=== PATIENT | female | born 1930 | race Caucasian/White ===

== ENCOUNTER 2019-09-18 05:41 | Inpatient (IN) ==
[~2019-09-18 05:41] MED LIST: ACETAMINOPHEN 500 MG TABLET PO ONE
[2019-09-18] MEDS ORDERED: ceFAZolin 1,000 MG in SYRINGE 1 EACH IV ONE (06:00)
[2019-09-18] MEDS ORDERED: VANCOMYCIN INJ 1,000 MG in SODIUM CHLORIDE 0.9% 250 ML IV ONE (06:00)
[2019-09-18] MEDS ORDERED: ceFAZolin 1,000 MG VIAL ONE (06:01)
[2019-09-18] MEDS ORDERED: VANCOMYCIN 1,000 MG VIAL ONE (06:01)
[2019-09-18] MEDS ORDERED: SCOPOLAMINE 1.5 MG PATCH TRANSDERM ONE (06:30)
[2019-09-18] MEDS: LACTATED RINGERS 1,000 ML IV SCH ×2 (06:35→08:00)
[2019-09-18] MEDS ORDERED: ROPIVACAINE 0.5% 30 ML VIAL ONE (06:35)
[2019-09-18] MEDS ORDERED: LIDOCAINE 1% 5 ML VIAL ONE (06:35)
[2019-09-18] MEDS ORDERED: MIDAZOLAM 2 MG/2 ML VIAL ONE (06:36)
[2019-09-18] MEDS ORDERED: fentaNYL 100 MCG/2 ML VIAL ONE ×2 (06:36→09:03)
[2019-09-18] MEDS ORDERED: DEXAMETHASONE 4 MG/1 ML VIAL ONE ×2 (06:36→09:03)
[2019-09-18] MEDS ORDERED: ACETAMINOPHEN 500 MG TABLET ONE (06:38)
[2019-09-18] MEDS ORDERED: GABAPENTIN 400 MG CAPSULE ONE (06:38)
[2019-09-18] MEDS ORDERED: ACETAMINOPHEN 500 MG TABLET PO ONE (07:00)
[2019-09-18] MEDS ORDERED: GABAPENTIN 400 MG CAPSULE PO ONE (07:00)
[2019-09-18] MEDS ORDERED: TRANEXAMIC ACID 1,000 MG/10 ML VIAL ONE (07:36)
[2019-09-18] MEDS ORDERED: TEMAZEPAM 7.5 MG CAPSULE PO PRN (08:39)
[2019-09-18] MEDS ORDERED: MORPHINE 4 MG/1 ML VIAL IV PRN ×2 (08:39→09:03)
[2019-09-18] MEDS ORDERED: LACTULOSE 20 GM/30 ML UDCUP PO PRN (08:39)
[2019-09-18] MEDS ORDERED: ONDANSETRON 4 MG/2 ML VIAL IV PRN (08:39)
[2019-09-18] MEDS ORDERED: diphenhydrAMINE CAP 25 MG CAPSULE PO PRN (08:39)
[2019-09-18] MEDS ORDERED: MAGNESIUM HYDROXIDE SUSP 30 ML UDCUP PO PRN (08:39)
[2019-09-18] MEDS ORDERED: BISACODYL 10 MG SUPP RECTAL PRN (08:39)
[2019-09-18] MEDS ORDERED: PROMETHAZINE 25 MG/1 ML VIAL IM PRN (08:39)
[2019-09-18] MEDS ORDERED: BACLOFEN 10 MG TABLET PO PRN (08:42)
[2019-09-18] MEDS ORDERED: LIDOCAINE 2% 5 ML VIAL ONE (09:02)
[2019-09-18] MEDS ORDERED: propofoL 200 MG/20 ML VIAL IV ONE (09:02)
[2019-09-18] MEDS ORDERED: ONDANSETRON 4 MG/2 ML VIAL ONE (09:03)
[2019-09-18] MEDS ORDERED: ePHEDrine 50 MG/ML AMP ONE (09:03)
[2019-09-18] MEDS ORDERED: NEOSTIGMINE 10 MG/10 ML VIAL ONE (09:03)
[2019-09-18] MEDS ORDERED: GLYCOPYRROLATE 0.4 MG/2 ML VIAL ONE (09:03)
[2019-09-18] MEDS ORDERED: SEVOFLURANE 1 UNIT/15 MINUTE INH ONE (09:03)
[2019-09-18] MEDS ORDERED: ROCURONIUM 100 MG/10 ML VIAL IV ONE (09:03)
[2019-09-18] MEDS ORDERED: SODIUM CHLORIDE 0.9% 100 ML IV ONE (09:03)
[2019-09-18 09:04] LABS: Apearance,Urine Slightly Hazy (Clear); Bilirubin,Urine Negative (Negative); Blood, Urine Negative (Negative); Glucose,Urine (UA) Negative (Negative); Hyaline Casts,Urine 4 /LPF (0-3); Ketones,Urine Negative (Negative); Mucus,Urine Few /LPF (Occasional); Nitrite,Urine Negative (Negative); Protein,Urine Negative; RBC,Urine 2 /HPF (0-4); Squamous Epithelial Cell,Urine Occasional /HPF (0-10); Urine Color Yellow (Yellow); Urine Specific Gravity 1.024 (1.001-1.035); Urine Urobilinogen < 2.0 EU/DL (0.2-1.0); WBC,Urine 1 /HPF (0-6)
[2019-09-18] MEDS: DOCUSATE SODIUM 100 MG CAPSULE PO SCH ×2 (10:14→21:44)
[2019-09-18] MEDS: LOSARTAN 50 MG TABLET PO SCH (10:14)
[2019-09-18] MEDS: LEVOTHYROXINE 75 MCG TABLET PO SCH (10:14)
[2019-09-18] MEDS: ceFAZolin 1,000 MG in SYRINGE 1 EACH IV SCH ×2 (14:09→21:44)
[2019-09-18] MEDS ORDERED: TUBERCULIN SKIN TEST 0.1 ML SYRINGE INTRADERM ONE (14:33)
[2019-09-18] MEDS ORDERED: FLUCONAZOLE 150 MG TABLET PO ONE (17:06)
[2019-09-19 05:02] LABS: Basophils % 0.1 % (0.0-0.8); Hematocrit 34.4 VOL% (35.7-47.0); Hemoglobin 11.5 GM/DL (12.0-16.0); Lymphocytes % 9.7 % (21.3-54.2); Mean Corpuscular HGB Conc 33.4 GM/DL (32-36); Mean Corpuscular Volume 92.5 FL (87-102); Mean Platelet Volume 10.3 FL (9.6-12.0); Monocytes % 7.1 % (1.7-12.7); Neutrophils % 82.2 % (38.7-73.9); Platelet Count 148 T/CUMM (130-400); Red Blood Count 3.72 MC/CUMM (3.8-5.5); Red Cell Distribution Width 13.2 % (9.3-17.3); White Blood Count 8.1 T/CUMM (4-12)
[2019-09-19 05:03] LABS: Immature Granulocytes % 0.9 %; Immature Granulocytes Absolute 0.07 #; Lymphocytes # 0.8 10*3/uL (1.4-4.0)
[2019-09-19 05:34] LABS: Calcium 8.6 MG/DL (8.5-10.1); Osmolality,Calculated 278.5 MOS/KG (273-304)
[2019-09-19] MEDS: LEVOTHYROXINE 75 MCG TABLET PO SCH (06:30)
[2019-09-19] MEDS: FONDAPARINUX 2.5 MG/0.5 ML SYRINGE SUBCUT SCH (06:30)
[2019-09-19] MEDS: LOSARTAN 50 MG TABLET PO SCH (08:57)
[2019-09-19] MEDS: DOCUSATE SODIUM 100 MG CAPSULE PO SCH ×2 (08:58→21:09)
[2019-09-20 06:23] LABS: Basophils % 0.6 % (0.0-0.8); Eosinophils # 0.2 10*3/uL (0.0-0.87); Eosinophils % 2.1 % (0.00-10.9); Hematocrit 33.9 VOL% (35.7-47.0); Hemoglobin 11.3 GM/DL (12.0-16.0); Immature Granulocytes % 0.3 %; Immature Granulocytes Absolute 0.02 #; Lymphocytes # 1.3 10*3/uL (1.4-4.0); Lymphocytes % 17.7 % (21.3-54.2); Mean Corpuscular HGB Conc 33.3 GM/DL (32-36); Mean Corpuscular Volume 92.6 FL (87-102); Mean Platelet Volume 9.5 FL (9.6-12.0); Monocytes % 8.2 % (1.7-12.7); Neutrophils % 71.1 % (38.7-73.9); Platelet Count 123 T/CUMM (130-400); Red Blood Count 3.66 MC/CUMM (3.8-5.5); Red Cell Distribution Width 13.2 % (9.3-17.3); White Blood Count 7.2 T/CUMM (4-12)
[2019-09-20] MEDS: LEVOTHYROXINE 75 MCG TABLET PO SCH (06:24)
[2019-09-20] MEDS: FONDAPARINUX 2.5 MG/0.5 ML SYRINGE SUBCUT SCH (06:24)
[2019-09-20] MEDS ORDERED: TEMAZEPAM 15 MG CAPSULE PO PRN (07:23)
[2019-09-20] MEDS: LOSARTAN 50 MG TABLET PO SCH (10:48)
[2019-09-20] MEDS: DOCUSATE SODIUM 100 MG CAPSULE PO SCH (10:49)
[2019-09-21] MEDS: DOCUSATE SODIUM 100 MG CAPSULE PO SCH ×2 (00:21→08:52)
[2019-09-21] MEDS: FONDAPARINUX 2.5 MG/0.5 ML SYRINGE SUBCUT SCH (05:30)
[2019-09-21] MEDS: LEVOTHYROXINE 75 MCG TABLET PO SCH (06:22)
[2019-09-21] MEDS: LOSARTAN 50 MG TABLET PO SCH (08:52)
[2019-09-21 11:57] VITALS: BP 128/43
[2019-09-22] MEDS ORDERED: ERGOCALCIFEROL 50,000 UNIT CAPSULE PO SCH (09:00)
== END 2019-09-21 12:28 | disposition swing bed (61) | DRG 470 ==
LOC: N.SDSINP 05:41 → N.3E 08:56
PROVIDERS: ADMIT Orthopaedic Surgery; ATTEND Orthopaedic Surgery